=== PATIENT | female | born 1970 | race Caucasian/White ===

== ENCOUNTER 2016-10-01 08:30 | Emergency (ER) | payer SELFPAY ==
[2016-10-01 09:09] VITALS: BP 116/79
--- NOTE | 2016-10-01 10:13 | UC ---
Ear Complaint HPI - HPI Summary HPI Summary: The patient comes in today for: 1. Right ear drainage, chronic fatigue, poor concentration, "completely out of it all the time": Onset: Ear drainage: 5 years. Fatigue/poor concentration: 3 months. Palliative/provocative: Nothing. Quality: No pain. Region: Right ear. Severity: 0/10 Time: Constant. Associated symptoms: She states that she is feeling "overwhelmed." PCP: [facility] network. Hearing: "Horrible" Previous evaluation for ear: "I can't remember who I have seen for my ear." Previous evaluation for chronic fatigue: No one seen. Fevers: None. * - History of Current Complaint Chief Complaint: UCGeneralIllness Stated Complaint: EAR PAIN Time Seen by Provider: 10/01/16 10:07 Hx Obtained From: Patient Hx Last Menstrual Period: 09/22/16 - Allergies/Home Medications Allergies/Adverse Reactions: Allergies Allergy/AdvReac Type Severity Reaction Status Date / Time No Known Allergies Allergy Verified 10/01/16 09:01 Home Medications: Home Medications Caffeine 200 mg PO DAILY PRN 10/01/16 [History Confirmed 10/01/16] Hydroxycut 1 tab PO QAM 10/01/16 [History Confirmed 10/01/16] PMH/Surg Hx/FS Hx/Imm Hx Previously Healthy: No - Chronic fatigue and right ear drainage. - Surgical History Surgical History: Yes Surgery Procedure, Year, and Place: Appendectomy, ~, [place]; Right Ear Surgery for Vertigo, ~2001, [place]; Tubal Ligation, [place] - Family History Known Family History: Positive: Cardiac Disease Negative: Hypertension - Social History Occupation: Employed Full-time Alcohol Use: Rare Alcohol Amount: none in 4 months Substance Use Type: None Smoking Status (MU): Heavy Every Day Tobacco Smoker Type: Cigarettes Amount Used/How Often: ~3/4 PPD Length of Time of Smoking/Using Tobacco: Since Age 9 Have You Smoked in the Last Year: Yes Household Exposure Type: Cigarettes - Immunization History Most Recent Influenza Vaccination: "I don't do the flu shot." Review of Systems Constitutional: Negative Skin: Negative Eyes: Negative ENT: Negative Respiratory: Negative Cardiovascular: Negative Gastrointestinal: Negative Genitourinary: Negative All Other Systems Reviewed And Are Negative: Yes Physical Exam Triage Information Reviewed: Yes Appearance: No Pain Distress, Well-Nourished, Other: - Patient had some pressured speech. She kept repeating over and over how frustrated she is with being "tired all the time." She started to cry at one point, but when offered medication for possible depression, she declined. Vital Signs: Initial Vital Signs Temp 98.3 F 10/01/16 08:58 Pulse 84 10/01/16 08:58 Resp 16 10/01/16 08:58 BP 116/79 10/01/16 08:58 Pulse Ox 100 10/01/16 08:58 Vital Signs Reviewed: Yes Eyes: Positive: Conjunctiva Clear. Negative: Discharge ENT: Positive: Hearing grossly normal. Negative: Pharyngeal erythema, Nasal congestion, Nasal drainage, Tonsillar swelling, Tonsillar exudate - Left ear: Canal had no erythema or edema. There was cerumen in the canal, but the seen TM was skinner Right ear: No canal erythema or edema. There was a greenish discoloration of the TM, but no perforation or fluid seen. Dental: Negative: Gross Decay/Caries @, Dental Fracture @ Neck: Positive: Supple, Nontender, No Lymphadenopathy, Other: - No thyromegally or tenderness.. Negative: Nuchal Rigidity Respiratory: Positive: Lungs clear, No respiratory distress, No accessory muscle use. Negative: Crackles, Wheezing Cardiovascular: Positive: RRR, No Murmur Abdomen Description: Positive: Nontender, No Organomegaly, Soft. Negative: Distended, Guarding Musculoskeletal: Positive: Strength Intact, ROM Intact, No Edema Neurological: Positive: Alert, Muscle Tone Normal Psychological: Positive: Age Appropriate Behavior, Consolable Skin: Negative: rashes, breakdown Ear Complaint Course/Dx - Course Course Of Treatment: Patient was told that I'll start an antibiotic for her ear , but she needs to see ENT. She was also told that the work up for chornic fatigue can be lengthy and therefore best managed by her primary care provider. However, we will get that started by ordering a CBC checking for anemia. - Differential Dx/Diagnosis Provider Diagnoses: Right otitis media. chronic fatigue Discharge - Discharge Plan Condition: Stable Disposition: HOME Patient Education Materials: Otitis Media (ED), Fatigue (ED) Referrals: Giles Farmer NP [Primary Care Provider] - As Soon As Possible (Please see your primary care provider as soon as you can for further evaluation of your fatigue. If you get worse, please go to the ER.) Jose Daniel Friedman MD [Medical Doctor] - 1 Week (Please contact Dr. Friedman's office as soon as you can for a re-evaluation of your right eye problems in about a week.)
[2016-10-01 13:52] LABS: Hematocrit 41 % (35-47); Hemoglobin 13.1 g/dl (12.0-16.0); Mean Corpuscular HGB Conc 32 g/dl (31-36); Mean Corpuscular Hemoglobin 26 pg (27-31); Mean Corpuscular Volume 82 fL (80-97); Mean Platelet Volume 8 um3 (7.4-10.4); Red Blood Count 4.98 10^6/ul (4.0-5.4); Red Cell Distribution Width 16 % (10.5-15); White Blood Count 8.9 10^3/ul (3.5-10.8)
--- NOTE | 2016-10-04 08:31 | UC ---
Progress - Progress Note Progress Note: ERxed diflucan please notify pt
== END 2016-10-01 10:54 | disposition home or self-care (01) ==
LOC: UCCORT 08:30
DX: H66.91 Otitis media, unspecified, right ear (principal); R53.82 Chronic fatigue, unspecified; F17.210 Nicotine dependence, cigarettes, uncomplicated
CPT/HCPCS: 36415; 85025; 86703; 99212; G0463

== ENCOUNTER 2017-02-03 11:25 | Emergency (ER) | payer MEDICAID, OTHER ==
[2017-02-03 11:47] VITALS: BP 104/66
--- NOTE | 2017-02-03 12:41 | UC ---
Throat Pain/Nasal Isai HPI - HPI Summary HPI Summary: ONE WEEK OF SINUS CONGESTION, COUGH FACIAL PRESSURE. - History of Current Complaint Chief Complaint: UCGeneralIllness Stated Complaint: CHEST CONGESTION,COUGH Time Seen by Provider: 02/03/17 11:50 Hx Obtained From: Patient, Family/Calciminer Hx Last Menstrual Period: 11/24/16 Onset/Duration: Gradual Onset, Lasting Weeks, Still Present Severity: Moderate Pain Intensity: 0 Pain Scale Used: 0-10 Numeric Cough: Productive Associated Signs & Symptoms: Positive: Sinus Discomfort, Nasal Discharge - Epiglottits Risk Factors Epiglottis Risk Factors: Negative - Allergies/Home Medications Allergies/Adverse Reactions: Allergies Allergy/AdvReac Type Severity Reaction Status Date / Time antibiotics AdvReac See Comment Uncoded 02/03/17 11:41 Home Medications: Home Medications Biotin [Biotin/Maximum Strength] 1 tab PO DAILY 02/03/17 [History Confirmed 04/10] [id number] [Vicks Nyquil Cold & Flu] 1 cap PO BEDTIME PRN [History Confirmed 02/03/17] Lactobacillus [Probiotic] 1 cap PO DAILY 02/03/17 [History Confirmed 02/03/17] Pseudoephedrine-Guaifenesin [Mucinex D 60-600 mg] 1 tab PO BID PRN 02/03/17 [ History Confirmed 02/03/17] PMH/Surg Hx/FS Hx/Imm Hx Previously Healthy: Yes - Surgical History Surgical History: Yes Surgery Procedure, Year, and Place: Appendectomy, ~, [place]; Right Ear Surgery for Vertigo, ~2001, [place]; Tubal Ligation, [place] - Family History Known Family History: Positive: None, Cardiac Disease Negative: Hypertension - Social History Occupation: Employed Part-time, Student Lives: With Family Alcohol Use: None Alcohol Amount: none in 4 months Substance Use Type: None Smoking Status (MU): Heavy Every Day Tobacco Smoker Type: Cigarettes Amount Used/How Often: 1/2 PPD Length of Time of Smoking/Using Tobacco: Since Age 9 Have You Smoked in the Last Year: Yes Household Exposure Type: Cigarettes - Immunization History Most Recent Influenza Vaccination: "I don't do the flu shot." Review of Systems Constitutional: Negative Skin: Negative ENT: Ear Ache, Nasal Discharge, Sinus Congestion, Sinus Pain/Tenderness Respiratory: Cough Cardiovascular: Negative Gastrointestinal: Negative Genitourinary: Negative Motor: Negative Neurovascular: Negative Musculoskeletal: Negative Neurological: Negative Psychological: Negative Is Patient Immunocompromised?: No All Other Systems Reviewed And Are Negative: Yes Physical Exam Triage Information Reviewed: Yes Appearance: No Pain Distress, Well-Nourished, Ill-Appearing Vital Signs: Initial Vital Signs Temp 98.5 F 02/03/17 11:44 Pulse 86 02/03/17 11:44 Resp 16 02/03/17 11:44 BP 104/66 02/03/17 11:44 Pulse Ox 100 02/03/17 11:44 Vital Signs Reviewed: Yes Eye Exam: Normal Eyes: Positive: Conjunctiva Inflamed ENT: Positive: Hearing grossly normal, Nasal congestion, TM bulging, TM dull Dental Exam: Normal Neck exam: Normal Neck: Positive: Supple, Nontender, No Lymphadenopathy Respiratory Exam: Normal Respiratory: Positive: Chest non-tender, Lungs clear, Normal breath sounds, No respiratory distress, No accessory muscle use Cardiovascular Exam: Normal Cardiovascular: Positive: RRR, No Murmur, Pulses Normal Abdominal Exam: Normal Musculoskeletal Exam: Normal Musculoskeletal: Positive: Strength Intact, ROM Intact Neurological Exam: Normal Psychological Exam: Normal Skin Exam: Normal Throat Pain/Nasal Course/Dx - Differential Dx/Diagnosis Differential Diagnosis/HQI/PQRI: Pharyngitis, Sinusitis, Tonsillitis, URI Provider Diagnoses: SINUSITIS; UPPER RESPIRATORY INFECTION Discharge - Discharge Plan Condition: Stable Disposition: HOME Prescriptions: Amoxicillin/Clavulanate TAB* [Augmentin TAB 875*] 875 mg PO BID #20 tab Benzonatate CAP* [Tessalon 100 MG CAP*] 100 mg PO TID PRN #15 cap PRN Reason: Cough Fluconazole [Diflucan 150 MG (NF)] 150 mg PO ONCE #1 tab Patient Education Materials: Sinusitis (ED), Upper Respiratory Infection (ED) Referrals: Giles Farmer NP [Primary Care Provider] -
== END 2017-02-03 12:22 | disposition home or self-care (01) ==
LOC: UCCORT 11:25
DX: J06.9 Acute upper respiratory infection, unspecified (principal); J32.9 Chronic sinusitis, unspecified; F17.210 Nicotine dependence, cigarettes, uncomplicated; Z88.1 Allergy status to other antibiotic agents
CPT/HCPCS: 99212; G0463